=== PATIENT | female | born 1960 | race Caucasian/White ===

== ENCOUNTER 2017-02-13 11:26 | Emergency (ER) | payer MEDICARE, MEDICAID ==
[~2017-02-13] VITALS: Ht 165.1 cm; Wt 80.0 kg
[~2017-02-13 11:26] MED LIST: AMOXICILLIN500 MG OR; B121000 MCG; DARVOCET-N 100100 MG OR; EFFEXOR XR150 MG OR; EFFEXOR XR75 MG OR; FOLIC ACID1 MG PO; LAMICTAL100 MG PO; LORTAB 5 OR; MORPHINE SUL30 M3 PO; MULTI VITAMN OR; NAPROSYN500 MG OR; OXYCODONE HCL15 MG PO; PERCOCET 5/325M1 TAB OR; SOMA350 MG PO; TRAZODONE100 MG PO; VENTOLIN HFA IN
[2017-02-13 11:46] VITALS: BP 118/70
== END 2017-02-13 12:15 | disposition left against medical advice (07) ==
LOC: ED 11:26 → LWOBS 11:56 → ED 11:56
DX: R10.9 Unspecified abdominal pain (principal); Z91.19 Patient's noncompliance with other medical treatment and regimen

== ENCOUNTER 2019-01-18 20:53 | Emergency (ER) | payer MEDICARE, MEDICAID ==
[~2019-01-18] VITALS: Ht 165.1 cm; Wt 100.0 kg
[2019-01-18 21:39] VITALS: BP 140/96
[2019-01-18] MEDS ORDERED: BENADRY2 EX (21:40)
[2019-01-18] MEDS ORDERED: LOVENOX40 MG/0.4 SC (21:46)
[2019-01-18] MEDS ORDERED: POTASSIUM CHLO10 ME4 PO (21:47)
[2019-01-18] MEDS ORDERED: SENNA-TABS8.6 MG PO (21:48)
== END 2019-01-18 21:53 | disposition home or self-care (01) ==
LOC: ED 20:53
DX: T83.038A Leakage of other urinary catheter, initial encounter (principal)

== ENCOUNTER 2019-05-03 18:19 | Emergency (ER) | payer MEDICARE ==
[~2019-05-03] VITALS: Ht 165.1 cm; Wt 76.0 kg
[~2019-05-03 18:19] MED LIST changes: +BENADRY2 EX; +LOVENOX40 MG/0.4 SC; +POTASSIUM CHLO10 ME4 PO; +SENNA-TABS8.6 MG PO
[2019-05-03 19:35] LABS: HEMATOCRIT 41.9 % (37.0-47.0); HEMOGLOBIN 13.3 g/dl (12.0-16.0); IMMATURE GRANULOCYTES 0.3 % (0.0-5.0); MEAN CELL VOLUME 92.7 fL CALC (80.0-100.0); MEAN CORPUSCULAR HGB 29.4 pG CALC (26.0-32.0); MEAN CORPUSCULAR HGB CONC 31.7 g/L CALC (32.0-36.0); NEUT# 3.51 thou/uL (2.00-7.15); RED BLOOD COUNT 4.52 mill/uL (4.20-5.60); RED CELL DISTRI WIDTH 14.7 % (11.5-15.5); URINE BILIRUBIN - DIPSTICK NEGATIVE (NEGATIVE); URINE BLOOD DIPSTICK MODERATE (NEGATIVE); URINE COLOR YELLOW; URINE GLUCOSE - DIPSTICK NEGATIVE (NEGATIVE); URINE KETONE NEGATIVE (NEGATIVE); URINE LEUK ESTERASE TRACE (NEGATIVE); URINE PROTEIN - DIPSTICK NEGATIVE (NEG-TRACE); URINE SPECIFIC GRAVITY 1.015; URINE UROBILINOGEN - DIPSTICK 0.2 E.U./dL (0.2)
[2019-05-03 19:36] LABS: URINE NITRITE - DIPSTICK POSITIVE (Negative)
[2019-05-03 19:48] LABS: URINE AMORPH SEDIMENT MODERATE hpf (NONE-FEW); URINE BACTERIA MANY hpf; URINE MUCUS MODERATE hpf (NONE-FEW); URINE SQUAMOUS EPITHELIAL CELL FEW EPI/hpf (0-FEW)
[2019-05-03 19:55] LABS: ALKALINE PHOSPHATASE 133 u/l (38-126); AMYLASE 76 u/l (30-110); BUN 16 mg/dL (7-17); BUN/CREATININE RATIO 17 (12-20 (CALC)); CHLORIDE 103 mmol/l (95-108); GFR 57 ML/MIN (>=60 (CALC)); GFR FOR AFR.AMER. > 60 ML/MIN (>=60 (CALC)); LIPASE 51 u/l (23-300); POTASSIUM 3.4 mmol/l (3.5-5.1); SGOT/AST 30 u/l (14-36); SODIUM 139 mmol/l (137-146)
[2019-05-03] MEDS ORDERED: CIPROFLOXACN500 MG PO (20:00)
[2019-05-03 20:02] LABS: ALBUMIN 4.1 g/dL (3.2-5.0); ANION GAP 15 (6-22 (CALC)); BILIRUBIN, TOTAL 0.2 mg/dL (0.0-1.4); CARBON DIOXIDE 24 mmol/l (22-30); TOTAL PROTEIN 7.3 g/dL (6.3-8.2)
[2019-05-03 20:05] LABS: MYOGLOBIN 47 ng/mL (0 - 62)
[2019-05-03] MEDS ORDERED: CEPHALEXIN500 M1 PO (21:17)
[2019-05-03] MEDS ORDERED: ONDANSETRON4 MG PO (21:17)
[2019-05-03 22:00] VITALS: BP 112/62
== END 2019-05-03 22:09 | disposition home or self-care (01) ==
LOC: ED 18:19
PROVIDERS: Emergency Medicine
DX: N39.0 Urinary tract infection, site not specified (principal); R11.10 Vomiting, unspecified; F17.210 Nicotine dependence, cigarettes, uncomplicated; B96.89 Other specified bacterial agents as the cause of diseases classified elsewhere
CPT/HCPCS: Q9967